=== PATIENT | female | born 1950 | race Caucasian/White ===

== ENCOUNTER 2018-10-23 07:22 | Emergency (ER) | payer BC, MEDICARE ==
[~2018-10-23] VITALS: Ht 154.9 cm; Wt 80.3 kg
[2018-10-23 09:14] LABS: BASOPHILS # (AUTO) 0.1 X10'3 (0-0.2); BASOPHILS % (AUTO) 0.6 % (0-1); EOSINOPHILS # (AUTO) 0.4 X10'3 (0-0.9); EOSINOPHILS % (AUTO) 3.2 % (0-6); HEMATOCRIT 42.1 % (35.0-45.0); HEMOGLOBIN 14.3 g/dl (12.0-16.0); LYMPHOCYTES # (AUTO) 2.1 X10'3 (1.1-4.8); LYMPHOCYTES % (AUTO) 18.4 % (21-51); MEAN CORPUSCULAR HEMOGLOBIN 28.9 PG (27.0-31.0); MEAN CORPUSCULAR HGB CONC 33.9 g/dL (33.0-36.5); MEAN CORPUSCULAR VOLUME 85.3 FL (78-98); MEAN PLATELET VOLUME 7.8 FL (7.4-10.4); MONOCYTES % (AUTO) 8.7 % (2-12); NEUTROPHILS # (AUTO) 7.8 X10'3 (1.8-7.7); NEUTROPHILS % (AUTO) 69.1 % (42-75); PLATELET COUNT 264 X10'3 (140-440); RED BLOOD COUNT 4.93 X10'6 (4.20-5.60); RED CELL DISTRIBUTION WIDTH 14.8 % (11.5-14.5); WHITE BLOOD COUNT 11.3 X10'3 (4.5-11.0)
[2018-10-23 09:27] LABS: ALANINE AMINOTRANSFERASE 40 U/L (12-78); ALBUMIN 3.8 G/DL (3.4-5.0); ALBUMIN/GLOBULIN RATIO 0.9 (1.1-1.5); ALKALINE PHOSPHATASE 91 IU/L (46-116); ANION GAP 6 (8-16); ASPARTATE AMINO TRANSFERASE 23 U/L (10-37); BILIRUBIN,TOTAL 0.5 MG/DL (0.1-1.0); BLOOD UREA NITROGEN 11 MG/DL (7-18); BUN/CREATININE RATIO 15.7 (6.6-38.0); CALCIUM 9.8 MG/DL (8.5-10.1); CHLORIDE 101 MMOL/L (99-107); GLUCOSE 88 MG/DL (70-104); POTASSIUM 4.3 MMOL/L (3.5-5.1); SODIUM 136 MMOL/L (135-145); TOTAL CARBON DIOXIDE 29.2 MMOL/L (24-32); TOTAL PROTEIN 8.1 G/DL (6.4-8.2); eGFR 83 ML/MIN
[2018-10-23] MEDS ORDERED: iohexol 300mg/ml 100ml inj. ONE (09:41)
--- NOTE | 2018-10-23 09:52 | NUR ---
Veronica RN: patient to CT.
--- NOTE | 2018-10-23 10:02 | NUR ---
Veronica RN: Patient back from CT, ambulated to restroom with steady gait.
[2018-10-23] MEDS ORDERED: CLIN300C70 PO (10:37)
[2018-10-23] MEDS ORDERED: TRAM50TA2 PO (10:37)
[2018-10-23 10:56] VITALS: BP 168/97
== END 2018-10-23 10:57 | disposition home or self-care (01) ==
LOC: ER 07:23
DX: K11.8 Other diseases of salivary glands (principal); Z85.118 Personal history of other malignant neoplasm of bronchus and lung; Z90.710 Acquired absence of both cervix and uterus; Z98.890 Other specified postprocedural states; Z87.891 Personal history of nicotine dependence
CPT/HCPCS: 36415; 70491; 80053; 84145; 85025; 99284; Q9967

== ENCOUNTER 2018-12-03 14:21 | Emergency (ER) | payer BC, MEDICARE ==
[~2018-12-03] VITALS: Ht 157.5 cm; Wt 77.3 kg
[2018-12-03 14:29] VITALS: BP 146/85
[2018-12-03 14:51] LABS: CLARITY,URINE CLOUDY (Clear); COLOR,URINE YELLOW (Yellow); GLUCOSE, URINE NEGATIVE (Neg); KETONES,URINE TRACE mg/dl (Neg); LEUKOCYTE ESTERASE ,URINE LARGE (Neg); NITRITES, URINE NEGATIVE (Neg); OCCULT BLOOD,URINE MODERATE (Neg); PH,URINE 5.5 (4.8-8.0); PROTEIN,URINE 30 mg/dl (Neg); UA COLLECTION TYPE CLN CATCH MIDSTREAM; UROBILINOGEN,URINE 0.2 E.U/dL (0.2-1.0)
[2018-12-03 14:57] LABS: WBC,URINE TNTC /HPF (0-4)
[2018-12-03 14:58] LABS: BACTERIA,URINE 3+ /HPF (Neg); MUCUS STRANDS NONE SEEN /LPF (Neg); SQUAMOUS EPITHELIAL CELL,UR NONE SEEN /LPF (FEW); WBC CLUMPS,URINE MANY /HPF (NEGATIVE)
[2018-12-03] MEDS ORDERED: CEPH500C5 PO (15:10)
--- NOTE | 2018-12-06 09:46 | NUR ---
PT RETURNED CALL REGARDING LAB RESULTS. NOTIFIED THAT THE RX PT WAS GIVEN NEEDED TO BE CHANGED DUE TO BACTERIA IDENTIFIED IN THE URINE CULTURE WAS RESISTANT TO THE KEFLEX THAT WAS PERSCRIBED. PT REQUESTED THAT NEW RX BE CALLED INTO [facility] [address]. BACTRIM DS 160MG PO BID [phone] DAYS CALLED TO [facility] REQUESTED.
== END 2018-12-03 15:25 | disposition home or self-care (01) ==
LOC: ER 14:21
DX: N39.0 Urinary tract infection, site not specified (principal); Z90.49 Acquired absence of other specified parts of digestive tract; Z90.710 Acquired absence of both cervix and uterus; Z98.890 Other specified postprocedural states; Z79.899 Other long term (current) drug therapy
CPT/HCPCS: 81001; 87077; 87088; 87186; 99283